=== PATIENT | male | born 1975 | race Caucasian/White ===

== ENCOUNTER 2019-09-12 08:30 | Outpatient (RCR) | payer OTHER, SELFPAY | END 2019-11-28 23:59 | disposition home or self-care (01) | LOC: ANHBWCAUD 08:30 | PROVIDERS: PCP Family Medicine; Visit Provider Nurse Practitioner | DX: Z46.1 Encounter for fitting and adjustment of hearing aid (principal) | CPT/HCPCS: 99199; V5160; V5261 ==

== ENCOUNTER 2020-01-12 09:52 | Emergency (ER) | payer OTHER, SELFPAY ==
[2020-01-12] VITALS (9 sets, daily range): BP systolic 122–132; BP diastolic 72–84; PULSE 63–73; RESP 13–20; TEMP 37.4; O2SAT 95–99
--- NOTE | ~2020-01-12 | XR_ITS ---
XR chest 2V 01/12/2020 10:51 Indication: Fever. Procedure: PA and lateral views of the chest Comparison: 08/24/2004 Findings: patchy right perihilar and left basilar airspace disease, suspicious for pneumonia. No pleu ral effusion. Heart size normal. No pneumothorax. Impression: 1: Multifocal airspace disease, suspicious for pneumonia. Reviewed, dictated and finalized at location A. Impression: 1: Multifocal airspace disease, suspicious for pneumonia.
--- NOTE | 2020-01-12 10:15 | ED.GENADULT ---
HPI - General Adult General Chief complaint: Fever Stated complaint: fever Time Seen by Provider: 01/12/20 10:07 History of Present Illness HPI narrative: Patient is a 44 y/o male complaining of fever last night. He states that he had a fever of 101 around 9:00 PM last night. He has some low back pain. He also has a slight cough. He did not take anything for the fever. There is no know alleviating or exacerbating factor. Related Data Allergies Allergy/AdvReac Type Severity Reaction Status Date / Time No Known Allergies Allergy Verified 01/12/20 10:00 Review of Systems Constitutional: Constitutional: Denies chills, Reports fever(s), Denies headache(s) and Denies weakness Eyes: Eyes: Denies blurry vision ENT: Denies headache(s) and Denies neck pain Cardiovascular: Cardiovascular: Denies chest pain and Denies dyspnea Respiratory: Respiratory: Reports cough and Denies dyspnea Gastrointestinal: Gastrointestinal: Denies abdominal pain, Denies diarrhea, Denies nausea and Denies vomiting Genitourinary: Genitourinary: Denies hematuria and Denies dysuria Musculoskeletal: Musculoskeletal: Reports back pain and Denies neck pain Neurologic: Denies headache(s) and Denies weakness PMFSH Social History Social History Gender identity (if verbalized by the patient): Male Exam Const: General: no acute distress and well developed Orientation/consciousness: oriented to person, oriented to place, oriented to time and patient oriented x3 HENMT: Head: normocephalic Ears: external ears normal General nose exam: Normal external nose present Eyes: General: appearance normal, both eyes and all related structures Conjunctivae: conjunctivae normal Neck: Neck: normal visual inspection and full ROM Chest: Chest palpation & inspection: normal inspection of the chest and no tenderness Resp: Effort & Inspection: normal respiratory effort Auscultation: clear to auscultation bilaterally Cardio: Rate: regular rate Rhythm: regular rhythm GI: GI Palp: No abdominal tenderness and Yes Soft to palpation Skin: General skin exam: normal color and turgor normal Neuro: General: oriented to person, oriented to place, oriented to time and patient oriented x3 Cognition (Neuro): normal cognition Extrem: General: normal to inspection, full ROM and no pedal edema Psych: Appearance: grossly normal Mental Status: mental status grossly normal Affect: normal affect Course Reevaluation(s) Reevaluation #1: Informed patient that COVID is suspected and instructed patient to self isolate for 2 weeks or until test comes back negative. Date: 01/12/20 Vital Signs Vital signs: Vital Signs Temperature 37.4 C 01/12/20 09:56 Pulse Rate 73 01/12/20 09:56 Respiratory Rate 18 01/12/20 09:56 Blood Pressure 132/84 01/12/20 09:56 Pulse Oximetry 97 01/12/20 09:56 Temperature 37.4 C 01/12/20 09:56 Pulse Rate 66 01/12/20 11:46 Respiratory Rate 17 01/12/20 11:46 Blood Pressure 122/72 01/12/20 11:45 Pulse Oximetry 99 01/12/20 11:46 Medical Decision Making Vital Signs Vital Signs: Vital Signs Temperature 37.4 C 01/12/20 09:56 Pulse Rate 73 01/12/20 09:56 Respiratory Rate 18 01/12/20 09:56 Blood Pressure 132/84 01/12/20 09:56 Pulse Oximetry 97 01/12/20 09:56 Temperature 37.4 C 01/12/20 09:56 Pulse Rate 66 01/12/20 11:46 Respiratory Rate 17 01/12/20 11:46 Blood Pressure 122/72 01/12/20 11:45 Pulse Oximetry 99 01/12/20 11:46 Lab Data Result diagrams: 01/12/20 10:18 01/12/20 10:18 Labs: Lab Results 01/12/20 01/12/20 01/12/20 Range/Units 10:18 10:18 10:18 WBC 3.1 L (4.5-10.0) K/mm3 RBC 4.70 (4.6-6.20) M/mm3 Hgb 15.2 (14.0-18.0) g/dL Hct 42.7 (42.0-52.0) % MCV 90.9 (80-100) fl MCH 32.3 (26-34) pg MCHC 35.6 (32-36) g/dl RDW 11.9 (11.5-14.5) % Plt Count 123 L (150-375) k/mm3 MPV 10.1 (7.4-
[2020-01-12] MEDS: SODIUM CHLORIDE 0.9% IV 1,000 ML 999 ML IV CONT (10:25)
[2020-01-12 10:26] LABS: Basophils Percent Auto 0.3 % (0.2-1.2); Eosinophils Percent Auto 0.6 % (0-4.4); Hematocrit 42.7 % (42.0-52.0); Hemoglobin 15.2 g/dL (14.0-18.0); Lymphocytes Absolute Auto 0.79 K/mm3 (0.9-3.2); Lymphocytes Percent Auto 25.2 % (18.3-44.2); Mean Corpuscular HGB Conc 35.6 g/dl (32-36); Mean Corpuscular Hemoglobin 32.3 pg (26-34); Mean Corpuscular Volume 90.9 fl (80-100); Mean Platelet Volume 10.1 fl (7.4-10.4); Monocytes Absolute Auto 0.3 K/mm3 (0.1-0.6); Monocytes Percent Auto 8.9 % (2.6-8.5); Platelet Count Result 123 k/mm3 (150-375); Red Cell Distribution Width 11.9 % (11.5-14.5); White Blood Count 3.1 K/mm3 (4.5-10.0)
[2020-01-12 10:36] LABS: Alanine Aminotransferase 28 U/L (4-50); Albumin Level 4.1 g/dL (3.5-5.1); Alkaline Phosphatase 97 U/L (38-126); Aspartate Amino Transferase 33 U/L (17-59); Bilirubin,Total 0.4 mg/dL (0.2-1.3); Blood Urea Nitrogen 12 mg/dL (9-20); Calcium 8.1 mg/dL (8.4-10.2); Carbon Dioxide 22 mmol/L (22-30); Chloride 106 mmol/L (98-107); Estimated CRCL calculation 137 ml/min; Estimated Glomerular Filt Rate > 60; Glucose 108 mg/dL (75-110); Potassium 3.5 mmol/L (3.4-5.0); Sodium 137 mmol/L (137-145)
[2020-01-12 10:37] LABS: Lactic Acid Reflex 0.8 mmol/L (0.7-2.1)
[2020-01-12 11:33] LABS: Add Urine Microscopic? NO; Appearance Urine Clear (Clear); Bilirubin Urine Negative (Negative); Blood Urine Negative (Negative); Color Urine Yellow (Yellow); Glucose Urine UA Negative (Negative); Ketones Urine Negative (Negative); Leukocyte Esterase Ur Negative LEU/UL (Negative); Nitrate Urine Negative (Negative); Protein Urine Negative (Negative); Specific Grav Ur 1.026 (1.001-1.035); Urobilinogen Urine Negative mg/dL (<2.0)
[2020-01-13 11:23] LABS: SARS-CoV-2 RNA PCR Positive
== END 2020-01-12 11:59 | disposition home or self-care (01) ==
PROVIDERS: Emergency Provider Emergency Medicine; PCP Nurse Practitioner
DX: U07.1 COVID-19 (principal); J12.89 Other viral pneumonia
CPT/HCPCS: 36415; 71046; 80053; 81003; 83605; 85025; 87635; 96360; 99283; C9803; J7030; U0003